=== PATIENT | female | born 1980 | race Caucasian/White ===

== ENCOUNTER → 2016-08-06 | Outpatient (CLI) | payer OTHER | LOC: HPND 08:30 | PROVIDERS: ATTEND Obstetrics & Gynecology | DX: O09.522 Supervision of elderly multigravida, second trimester (principal); O24.410 Gestational diabetes mellitus in pregnancy, diet controlled; O09.212 Supervision of pregnancy with history of pre-term labor, second trimester | CPT/HCPCS: 76816 ==